=== PATIENT | male | born 1975 | race Hispanic/Latino ===

== ENCOUNTER 2020-06-17 07:59 | Emergency (ER) | payer OTHER, SELFPAY ==
[2020-06-17] MEDS ORDERED: LIDOCAINE 1% MPF 5 ML VIAL ONE (09:40)
[2020-06-17] MEDS ORDERED: LIDOCAINE 1% 20 ML MDV ONE (10:03)
--- NOTE | 2020-06-17 10:08 | ER ---
Nurse's Notes [facility] Name: Karina Hammer Age: 44 yrs Sex: Male : 1975 Arrival Date: 06/17/2020 Time: 08:02 Bed 26 Private MD: Diagnosis: Cutaneous abscess of neck Presentation: 06/17 08:29 Chief complaint: Patient states: large abscess to back of neck X 5 days, has iw progressively gotten bigger, it initially drained and then it came back. Coronavirus screen: At this time, the client does not indicate any symptoms associated with coronavirus-19. Ebola Screen: Patient negative for fever greater than or equal to 101.5 degrees Fahrenheit, and additional compatible Ebola Virus Disease symptoms Patient denies exposure to infectious person. Patient denies travel to an Ebola-affected area in the 21 days before illness onset. No symptoms or risks identified at this time. Initial Sepsis Screen: Does the patient meet any 2 criteria? No. Patient's initial sepsis screen is negative. Does the patient have a suspected source of infection? No. Patient's initial sepsis screen is negative. Risk Assessment: Do you want to hurt yourself or someone else? Patient reports no desire to harm self or others. Onset of symptoms was June 12, 2020. 08:29 Method Of Arrival: Ambulatory iw 08:29 Acuity: PHAN 3 iw Historical: - Allergies: 08:31 No Known Allergies; iw - Home Meds: 08:31 None [Active]; iw - PMHx: 08:31 None; iw - PSHx: 08:31 None; iw - Immunization history:: Adult Immunizations not up to date. - Social history:: Smoking status: Patient denies any tobacco usage or history of. Screenin:30 Abuse screen: Denies threats or abuse. Denies injuries from another. Nutritional ss screening: No deficits noted. Tuberculosis screening: Never had TB. Fall Risk None identified. Assessment: 09:30 General: Appears uncomfortable, Behavior is calm, cooperative. General: Denies fever, ss feeling ill, fatigue, chills. Pain: Complains of pain in back of neck Pain currently is 8 out of 10 on a pain scale. Quality of pain is described as tender, Is continuous. Neuro: Level of Consciousness is awake, alert, obeys commands, Oriented to person, place, time, situation. Cardiovascular: Pulses are palpable in right radial artery and left radial artery. Respiratory: Airway is patent Respiratory effort is even, unlabored, Respiratory pattern is regular, symmetrical. GI: No signs and/or symptoms were reported involving the gastrointestinal system. Patient currently denies diarrhea, nausea, vomiting. : No signs and/or symptoms were reported regarding the genitourinary system. EENT: Nares are clear Oral mucosa is moist. Derm: Abscess located on back of neck is half dollar sized, is red, is raised. 09:45 Reassessment: TIFFANIE Moss at bedside performing I\T\D. Pt is tolerating well. ss Vital Signs: 08:29 BP 163 / 93; Pulse 100; Resp 16; Temp 97.9; Pulse Ox 98% on R/A; Weight 96.16 kg; iw Height 5 ft. 8 in. (172.72 cm); 08:29 Body Mass Index 32.23 (96.16 kg, 172.72 cm) iw ED Course: 08:02 Patient arrived in ED. as 08:31 Triage completed. iw 08:31 Arm band placed on. iw 09:12 Renee Burk, RN is Primary Nurse. iw 09:14 Yovani Barbour PA is PHCP. jr8 09:14 Rodo Whitman MD is Attending Physician. jr8 09:30 Patient has correct armband on for positive identification. Bed in low position. Call ss light in reach. 10:07 Wade Kauffman MD is Referral Physician. jr8 10:10 Assist provider with I \T\ D: of an abscess on Set up I\T\D tray. Performed by Yovani Barbour iw TIFFANIE. 10:26 Patient did not have IV access during this emergency room visit. iw Administered Medications: 09:41 Drug: Lidocaine (1 %) 1 vials {Note: administred by TIFFANIE Navas to wound.} Volume: 20 ss ml; Route: Infiltration; 10:18 Drug: Ancef 1 grams Route: IM; Site: left gluteus; iw 10:20 Not Given (Patient Refused): morphine 4 mg IM once; RASS on ADMIN: Combtv4, Very iw Agttd3, Agttd2, Rstlss1, AlertClm0, Drwsy-1, Lt Sdtn-2, Mod Sdtn-3, Dp Sdtn-4, UnArsble-5 10:20 Not Given (Patient Refused): Zofran (Ondansetron) 4 mg PO once iw Outcome: 10:07 Discharge ordered by . jr8 10:26 Discharged to home ambulatory. iw 10:26 Condition: good 10:26 Discharge instructions given to patient, Instructed on discharge instructions, follow up and referral plans. medication usage, Demonstrated understanding of instructions, follow-up care, medications, Prescriptions given X 2. 10:27 Patient left the ED. iw Signatures: Kristy Kauffman Irene, RN RN iw Janis Turner RN RN ss Roszak, Josh, PA PA jr8
--- NOTE | 2020-06-17 10:08 | EDPHYS ---
Physician Documentation [facility] Name: Karina Hammer Age: 44 yrs Sex: Male : 1975 Arrival Date: 06/17/2020 Time: 08:02 Bed 26 Private MD: ED Physician Rodo Whitman HPI: 06/17 10:03 This 44 yrs old Male presents to ER via Ambulatory with complaints of Neck jr8 Problem. 10:03 The patient or guardian complains of pain, swelling. The symptoms are located on the jr8 back of neck. Onset: The symptoms/episode began/occurred gradually, 5 day(s) ago, and became worse. Associated signs and symptoms: The patient has no apparent associated signs or symptoms. Severity of symptoms: At their worst the symptoms were moderate, in the emergency department the symptoms are unchanged. The patient has not experienced similar symptoms in the past. The patient has not recently seen a physician. Patient stated that he felt a boil on back of neck 5 days ago that has now increased in size and much more painful . Historical: - Allergies: 08:31 No Known Allergies; iw - Home Meds: 08: None [Active]; iw - PMHx: 08: None; iw - PSHx: 08: None; iw - Immunization history:: Adult Immunizations not up to date. - Social history:: Smoking status: Patient denies any tobacco usage or history of. ROS: 10:03 Constitutional: Negative for fever, chills, and weight loss. jr8 10:03 Skin: Positive for abscess, of the back of neck. 10:03 All other systems are negative. Exam: 10:03 Head/Face: Normocephalic, atraumatic. Eyes: Pupils equal round and reactive to light, jr8 extra-ocular motions intact. Lids and lashes normal. Conjunctiva and sclera are non-icteric and not injected. Cornea within normal limits. Periorbital areas with no swelling, redness, or edema. ENT: Nares patent. No nasal discharge, no septal abnormalities noted. Tympanic membranes are normal and external auditory canals are clear. Oropharynx with no redness, swelling, or masses, exudates, or evidence of obstruction, uvula midline. Mucous membranes moist. Neck: Trachea midline, no thyromegaly or masses palpated, and no cervical lymphadenopathy. Supple, full range of motion without nuchal rigidity, or vertebral point tenderness. No Meningismus. Cardiovascular: Regular rate and rhythm with a normal S1 and S2. No gallops, murmurs, or rubs. Normal PMI, no JVD. No pulse deficits. Respiratory: Lungs have equal breath sounds bilaterally, clear to auscultation and percussion. No rales, rhonchi or wheezes noted. No increased work of breathing, no retractions or nasal flaring. MS/ Extremity: Pulses equal, no cyanosis. Neurovascular intact. Full, normal range of motion. Neuro: Awake and alert, GCS 15, oriented to person, place, time, and situation. Cranial nerves II-XII grossly intact. Motor strength 5/5 in all extremities. Sensory grossly intact. Cerebellar exam normal. Normal gait. 10:03 Skin: abscess, that is moderate sized, approximately 5 cm(s), of the back of neck, with drainage, that is purulent, with induration, with surrounding cellulitis. Vital Signs: 08:29 BP 163 / 93; Pulse 100; Resp 16; Temp 97.9; Pulse Ox 98% on R/A; Weight 96.16 kg; iw Height 5 ft. 8 in. (172.72 cm); 08:29 Body Mass Index 32.23 (96.16 kg, 172.72 cm) iw Procedures: 10:03 I \T\ D: Incision and drainage was performed for an abscess of the back of neck Prepped jr8 with Betadine, Anesthetized with 7 ml's 1% Lidocaine. Incised with #11 blade. Drained moderate amount purulent fluid. bloody fluid. Loculations removed. Abscess cavity explored. Packed with iodoform gauze, Dressing: sterile 4x4 gauze, the patient tolerated the procedure well. MDM: 09:16 Patient medically screened. jr8 10:03 Data reviewed: vital signs, nurses notes, and as a result, I will discharge patient. [facility] Data interpreted: Pulse oximetry: on room air is 98 %. Interpretation: normal. Counseling: I had a detailed discussion with the patient and/or guardian regarding: the historical points, exam findings, and any diagnostic results supporting the discharge/admit diagnosis, the need for outpatient follow up, a general surgeon, to return to the emergency department if symptoms worsen or persist or if there are any questions or concerns that arise at home. ED course: Discussed with patient that he must f/u with general surgery for packing removal and further evaluation of abscess to ensure it is improving . 06/17 09:20 Order name: Dressing - Wound; Complete Time: 06/17 09:20 Order name: Gloves, Sterile; Complete Time: 06/17 09:20 Order name: Setup Suture Tray; Complete Time: Administered Medications: : Drug: Lidocaine (1 %) 1 vials {Note: administred by TIFFANIE Navas to wound.} Volume: 20 ss ml; Route: Infiltration; 10:18 Drug: Ancef 1 grams Route: IM; Site: left gluteus; iw 10:20 Not Given (Patient Refused): morphine 4 mg IM once; RASS on ADMIN: Combtv4, Very iw Agttd3, Agttd2, Rstlss1, AlertClm0, Drwsy-1, Lt Sdtn-2, Mod Sdtn-3, Dp Sdtn-4, UnArsble-5 10:20 Not Given (Patient Refused): Zofran (Ondansetron) 4 mg PO once iw Disposition: 11:10 Co-signature as Attending Physician, Rodo Whitman MD. rn Disposition: 06/17/20 10:07 Discharged to Home. Impression: Cutaneous abscess of neck. - Condition is Stable. - Discharge Instructions: Skin Abscess, Incision and Drainage. - Prescriptions for Tylenol- Codeine #3 300-30 mg Oral Tablet - take 2 tablets by ORAL route every 6 hours As needed; 20 tablet. Bactrim DS 800- 160 mg Oral Tablet - take 1 tablet by ORAL route every 12 hours for 10 days; 20 tablet. - Medication Reconciliation Form, Thank You Letter, Antibiotic Education, Prescription Opioid Use form. - Follow up: Wade Kauffman MD; When: 48 Hours; Reason: Wound Recheck, Recheck today's complaints, Continuance of care, Re-evaluation by your physician. - Problem is new. - Symptoms have improved. Signatures: Renee Burk RN RN iw Rodo Whitman MD MD rn Smirch, Shelby, RN RN ss Roszak, Josh, PA PA 8 Corrections: (The following items were deleted from the chart) 10:27 10:07 06/17/2020 10:07 Discharged to Home. Impression: Cutaneous abscess of neck. iw Condition is Stable. Forms are Medication Reconciliation Form, Thank You Letter, Antibiotic Education, Prescription Opioid Use. Follow up: Wade Kauffman; When: 48 Hours; Reason: Wound Recheck, Recheck today's complaints, Continuance of care, Re-evaluation by your physician. Problem is new. Symptoms have improved. jr8
[2020-06-17] MEDS ORDERED: CEFAZOLIN SODIUM 1 GM/VIAL ONE (10:27)
[2020-06-17] MEDS ORDERED: MORPHINE 4 MG/ML SYR ONE (10:28)
[2020-06-17] MEDS ORDERED: WATER FOR INJ,STERILE 10 ML ONE (10:28)
[2020-06-17] MEDS ORDERED: ONDANSETRON 4 MG (ODT) TAB ONE (10:28)
[2020-06-17 10:32] VITALS: BP 163/93; TEMP 97.9; O2SAT 98
== END 2020-06-17 10:27 | disposition home or self-care (01) ==
LOC: ER 07:59
PROC: 0H94XZZ Drainage of Neck Skin, External Approach (ICD-10-PCS; principal; 2020-06-17)
DX: L02.11 Cutaneous abscess of neck (principal)
CPT/HCPCS: 96372; 99283; J0690